=== PATIENT | female | born 2000 | race Caucasian/White ===

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

== ENCOUNTER 2022-03-01 17:59 | Emergency (ER) | payer OTHER ==
[~2022-03-01] VITALS: Ht 170.2 cm; Wt 61.4 kg
[2022-03-01 18:37] VITALS: TEMP 98.1
[2022-03-01 22:40] VITALS: BP 123/87; PULSE 88
== END 2022-03-01 22:40 | disposition home or self-care (01) ==
LOC: COL.ER 17:59
DX: S16.1XXA Strain of muscle, fascia and tendon at neck level, initial encounter (principal); V43.52XA Car driver injured in collision with other type car in traffic accident, initial encounter; Y92.410 Unspecified street and highway as the place of occurrence of the external cause
CPT/HCPCS: J1885